=== PATIENT | male | born 1980 | race Caucasian/White ===

== ENCOUNTER 2019-03-23 18:08 | Emergency (ER) | payer BC ==
[~2019-03-23] VITALS: Ht 182.9 cm; Wt 107.0 kg
[2019-03-23] MEDS ORDERED: NS 1,000 ML IV SCH (19:42)
[2019-03-23] MEDS ORDERED: KETOROLAC 30 MG/ML VIAL (J1885) IV ONE (19:45)
[2019-03-23] MEDS ORDERED: ONDANSETRON 4MG/2ML VIAL (J2405) IV ONE (19:45)
--- NOTE | 2019-03-23 20:29 | REPVR ---
PROCEDURE INFORMATION: Exam: CT Abdomen And Pelvis Without Contrast Exam date and time: 03/23/2019 7:51 PM Age: 38 years old Clinical indication: Abdominal pain; Flank; Right; Additional info: R renal calc TECHNIQUE: Imaging protocol: Computed tomography of the abdomen and pelvis without contrast. Axial, coronal and sagittal reformatted images were created and reviewed. Radiation optimization: All CT scans at this facility use at least one of these dose optimization techniques: automated exposure control; mA and/or kV adjustment per patient size (includes targeted exams where dose is matched to clinical indication); or iterative reconstruction. COMPARISON: No relevant prior studies available. FINDINGS: Lungs: Mild linear stranding and groundglass at the lung bases, likely due to atelectasis. Liver: Unremarkable. Gallbladder and bile ducts: Contracted gallbladder without radiodense gallstones. Pancreas: Unremarkable. Spleen: Unremarkable. Adrenals: Unremarkable. Kidneys and ureters: 1.8 cm left renal cyst. No radiodense calculi. No hydronephrosis. Stomach and bowel: No bowel wall thickening. No obstruction. No pneumatosis. Appendix: Findings suggestive of prior appendectomy. Intraperitoneal space: No free fluid. No organized fluid collection. No free air. Vasculature: Unremarkable. No aneurysm. Lymph nodes: No pathologically enlarged lymph nodes. Bladder: Unremarkable. Reproductive: Unremarkable. Bones/joints: No acute osseous abnormality. Mild degenerative changes. Soft tissues: Unremarkable. IMPRESSION: 1. Limited noncontrast examination without CT evidence of acute intra-abdominal or pelvic pathology. 2. Additional findings, as above. Electronically signed by: Lamont Panchal On 03/23/2019 20:29:05 PM
[2019-03-23 20:41] LABS: BASO % 0.3 % (0.0-1.0); EOS # 0.2 10^3/uL (0.0-0.5); EOS % 2.1 % (0.0-3.0); HEMATOCRIT 44.3 % (42.0-52.0); HEMOGLOBIN 14.6 g/dl (13.5-17.5); LYMPH # 2.8 10^3/uL (1.5-5.0); LYMPH % 30.7 % (24.0-44.0); MEAN CORPUSCULAR HEMOGLOBIN 29.2 pg (27.0-33.0); MEAN CORPUSCULAR VOLUME 88.6 fl (80.0-96.0); MONO # 0.7 10^3/uL (0.0-0.8); NEUTROPHILS # 5.3 10^3/uL (1.5-8.5); NEUTROPHILS % 58.5 % (36.0-66.0); PLATELET COUNT, AUTOMATED 286 10^3/uL (150-450); WHITE BLOOD COUNT 9.1 10^3/uL (4.0-10.0)
[2019-03-23] MEDS ORDERED: CYCL10TA PO (20:50)
[2019-03-23] MEDS ORDERED: IBUP-1022 PO (20:50)
[2019-03-23 20:59] VITALS: BP 123/67
[2019-03-23 21:10] LABS: ALBUMIN 4.2 GM/DL (3.2-5.2); ALT/SGPT 27 U/L (12-78); BILIRUBIN,DIRECT 0.1 MG/DL (0.0-0.2); BILIRUBIN,TOTAL 0.4 MG/DL (0.2-1.0); BLOOD UREA NITROGEN 13 MG/DL (7-18); CALCIUM LEVEL 9.1 MG/DL (8.5-10.1); CARBON DIOXIDE LEVEL 26 MEQ/L (21-32); CHLORIDE LEVEL 107 MEQ/L (98-107); CREATININE FOR GFR 0.81 MG/DL (0.70-1.30); GLOMERULAR FILTRATION RATE > 60.0 (>60); GLUCOSE, FASTING 109 MG/DL (70-100); LIPASE 66 U/L (73-393); POTASSIUM SERUM 3.8 MEQ/L (3.5-5.1); SODIUM LEVEL 140 MEQ/L (136-145)
== END 2019-03-23 21:21 | disposition home or self-care (01) ==
LOC: M ED 18:08
DX: M54.9 Dorsalgia, unspecified (principal); N28.1 Cyst of kidney, acquired; R11.0 Nausea; R68.83 Chills (without fever); Z87.442 Personal history of urinary calculi
CPT/HCPCS: 74176; 80048; 80076; 81001; 83690; 85025; 96361; 96374; 96375; 99284; J1885; J2405

== ENCOUNTER → 2020-03-09 | Outpatient (CLI) | payer SELFPAY ==
[~2020-03-09] MED LIST: CYCL-707 PO; IBUP-1022 PO
== END ==
LOC: M LABSMTC 09:27
PROVIDERS: ATTEND Pediatrics
DX: Z20.822 Contact with and (suspected) exposure to COVID-19 (principal)

== ENCOUNTER → 2020-04-20 | Outpatient (CLI) | payer SELFPAY | LOC: M LABSMTC 09:37 | PROVIDERS: ATTEND Pediatrics | DX: Z11.52 Encounter for screening for COVID-19 (principal) ==

== ENCOUNTER 2022-06-21 11:29 | Emergency (ER) | payer BC ==
[~2022-06-21] VITALS: Ht 182.9 cm; Wt 99.6 kg
[2022-06-21] MEDS ORDERED: AMIT25TA17 (11:41)
[2022-06-21] MEDS ORDERED: NICO1DIS12 (11:41)
[2022-06-21 13:24] LABS: BASO % 0.1 % (0.0-1.0); EOS # 0.2 10^3/uL (0.0-0.5); HEMATOCRIT 41.9 % (42.0-52.0); HEMOGLOBIN 13.9 g/dl (13.5-17.5); LYMPH # 1.5 10^3/uL (1.5-5.0); LYMPH % 18.1 % (24.0-44.0); MEAN CORPUSCULAR HEMOGLOBIN 29.9 pg (27.0-33.0); MEAN CORPUSCULAR HGB CONC 33.2 g/dl (32.0-36.5); MEAN CORPUSCULAR VOLUME 90.1 fl (80.0-96.0); MONO # 0.7 10^3/uL (0.0-0.8); MONO % 8.2 % (2.0-8.0); NEUTROPHILS # 5.9 10^3/uL (1.5-8.5); NEUTROPHILS % 71.2 % (36.0-66.0); PLATELET COUNT, AUTOMATED 223 10^3/uL (150-450); RED BLOOD COUNT 4.65 10^6/uL (4.30-6.10); WHITE BLOOD COUNT 8.3 10^3/uL (4.0-10.0)
[2022-06-21 13:33] LABS: ALBUMIN 3.9 G/DL (3.2-5.2); ALKALINE PHOSPHATASE 56 U/L (46-116); ALT/SGPT 30 U/L (7.0-40); AST/SGOT 23 U/L (<34); BILIRUBIN,TOTAL 0.9 MG/DL (0.3-1.2); BLOOD UREA NITROGEN 11 MG/DL (9-23); CALCIUM LEVEL 8.9 MG/DL (8.5-10.1); CARBON DIOXIDE LEVEL 31 MMOL/L (20-31); CHLORIDE LEVEL 106 MMOL/L (98-107); CREATININE FOR GFR 0.76 MG/DL (0.70-1.30); GLOMERULAR FILTRATION RATE > 60.0 (>60); GLUCOSE, FASTING 78 MG/DL (60-100); POTASSIUM SERUM 3.9 MMOL/L (3.5-5.1); SODIUM LEVEL 139 MMOL/L (136-145); TOTAL PROTEIN 6.6 G/DL (5.7-8.2)
[2022-06-21] MEDS ORDERED: ONDA4TAB6 PO (13:49)
[2022-06-21 13:57] VITALS: BP 119/74
== END 2022-06-21 13:59 | disposition home or self-care (01) ==
LOC: M ED 11:29
DX: S06.0X0A Concussion without loss of consciousness, initial encounter (principal)

== ENCOUNTER → 2022-10-31 | Outpatient (CLI) | payer BC ==
[~2022-10-31] MED LIST changes: +AMIT25TA19; +NICO1DIS12; +ONDA4TAB6 PO
== END ==
LOC: M RAD 14:01
PROVIDERS: ATTEND Registered Nurse
DX: M54.50 Low back pain, unspecified (principal); R22.2 Localized swelling, mass and lump, trunk

== ENCOUNTER → 2022-11-16 | Outpatient (CLI) | payer BC | LOC: M WHC 12:32 | PROVIDERS: ATTEND Registered Nurse | DX: N50.3 Cyst of epididymis (principal); N43.3 Hydrocele, unspecified ==

== ENCOUNTER → 2023-04-17 | Outpatient (CLI) | payer BC | LOC: M WHC 13:50 | PROVIDERS: ATTEND Registered Nurse | DX: N63.22 Unspecified lump in the left breast, upper inner quadrant (principal); N62 Hypertrophy of breast | CPT/HCPCS: 76642; 77066; G0279 ==

== ENCOUNTER → 2024-04-19 | Outpatient (REF) | payer BC ==
[~2024-04-19] MED LIST changes: +ONDA-282 PO; -ONDA4TAB6 PO
[2024-04-19 15:12] LABS: BLOOD UREA NITROGEN 11 MG/DL (9-23); CREATININE FOR GFR 0.77 MG/DL (0.70-1.30); GLOMERULAR FILTRATION RATE > 60.0 (>60)
== END ==
LOC: M LABDRWAD 13:07
PROVIDERS: ATTEND Registered Nurse
DX: Z01.812 Encounter for preprocedural laboratory examination (principal)

== ENCOUNTER → 2024-04-23 | Outpatient (CLI) | payer BC ==
[~2024-04-23] MED LIST changes: +ISOVUE-370 76% 100ML VIAL ONE
== END ==
LOC: M PLAIMG 08:39
PROVIDERS: ATTEND Registered Nurse
DX: N28.1 Cyst of kidney, acquired (principal); J98.11 Atelectasis; N28.89 Other specified disorders of kidney and ureter; K57.90 Diverticulosis of intestine, part unspecified, without perforation or abscess without bleeding; K40.20 Bilateral inguinal hernia, without obstruction or gangrene, not specified as recurrent; R16.1 Splenomegaly, not elsewhere classified; K76.0 Fatty (change of) liver, not elsewhere classified
CPT/HCPCS: 74177; Q9967

== ENCOUNTER → 2024-06-04 | Outpatient (REF) | payer BC ==
[~2024-06-04] MED LIST changes: -ISOVUE-370 76% 100ML VIAL ONE
[2024-06-04 14:08] LABS: BASO # 0.1 10^3/uL (0.0-0.2); BASO % 0.5 % (0.0-1.0); EOS # 0.3 10^3/uL (0.0-0.5); EOS % 2.9 % (0.0-3.0); HEMATOCRIT 47.1 % (42.0-52.0); HEMOGLOBIN 15.5 g/dl (13.5-17.5); LYMPH # 2.9 10^3/uL (1.5-5.0); LYMPH % 27.5 % (24.0-44.0); MEAN CORPUSCULAR HEMOGLOBIN 29.6 pg (27.0-33.0); MEAN CORPUSCULAR HGB CONC 32.9 g/dl (32.0-36.5); MEAN CORPUSCULAR VOLUME 90.1 fl (80.0-96.0); MONO # 0.7 10^3/uL (0.0-0.8); MONO % 6.4 % (2.0-8.0); NEUTROPHILS # 6.5 10^3/uL (1.5-8.5); NEUTROPHILS % 62.2 % (36.0-66.0); PLATELET COUNT, AUTOMATED 283 10^3/uL (150-450); RED BLOOD COUNT 5.23 10^6/uL (4.30-6.10); WHITE BLOOD COUNT 10.5 10^3/uL (4.0-10.0)
[2024-06-04 14:14] LABS: ALBUMIN 3.9 G/DL (3.2-5.2); ALKALINE PHOSPHATASE 69 U/L (40-129); ALT/SGPT 34 U/L (7.0-40); AST/SGOT 16 U/L (<34); BILIRUBIN,TOTAL 0.4 MG/DL (0.3-1.2); BLOOD UREA NITROGEN 9 MG/DL (9-23); CALCIUM LEVEL 9.8 MG/DL (8.5-10.1); CARBON DIOXIDE LEVEL 27 MMOL/L (20-31); CHLORIDE LEVEL 108 MMOL/L (98-107); CHOLESTEROL LEVEL 259 MG/DL (<200); CHOLESTEROL RISK RATIO 6.94 (<5); CREATININE FOR GFR 0.79 MG/DL (0.70-1.30); GLOMERULAR FILTRATION RATE > 90.0 (>60); GLUCOSE, FASTING 95 MG/DL (60-100); HDL CHOLESTEROL 37.3 MG/DL (>40); LDL CHOLESTEROL 191.7 MG/DL (<100); NON-HDL-C 221.7 MG/DL; POTASSIUM SERUM 4.6 MMOL/L (3.5-5.1); SODIUM LEVEL 142 MMOL/L (136-145); TOTAL PROTEIN 6.8 G/DL (5.7-8.2); TRIGLYCERIDES LEVEL 150 MG/DL (<150)
[2024-06-04 14:29] LABS: HEMOGLOBIN A1c 5.4 % (4.0-6.0)
== END ==
LOC: M LABDRWAD 13:28
PROVIDERS: ATTEND Registered Nurse
DX: Z00.00 Encounter for general adult medical examination without abnormal findings (principal)

== ENCOUNTER → 2024-08-27 | Outpatient (REF) | payer BC ==
[2024-08-27 15:36] LABS: ALT/SGPT 22 U/L (7.0-40); AST/SGOT 15 U/L (<34); CALCIUM LEVEL 9.5 MG/DL (8.5-10.1); CARBON DIOXIDE LEVEL 26 MMOL/L (20-31); CHLORIDE LEVEL 104 MMOL/L (98-107); CHOLESTEROL LEVEL 231 MG/DL (<200); CHOLESTEROL RISK RATIO 6.17 (<5); CREATININE FOR GFR 0.82 MG/DL (0.70-1.30); GLOMERULAR FILTRATION RATE > 90.0 (>60); LDL CHOLESTEROL 169.4 MG/DL (<100); NON-HDL-C 193.6 MG/DL; POTASSIUM SERUM 4.4 MMOL/L (3.5-5.1); SODIUM LEVEL 141 MMOL/L (136-145); TRIGLYCERIDES LEVEL 121 MG/DL (<150)
== END ==
LOC: M LABDRWAD 13:27
PROVIDERS: ATTEND Registered Nurse
DX: E78.2 Mixed hyperlipidemia (principal)

== ENCOUNTER → 2024-09-24 | Outpatient (CLI) | payer BC | LOC: M WUC 09:22 | PROVIDERS: ATTEND Nurse Practitioner Family | DX: R07.82 Intercostal pain (principal) ==

== ENCOUNTER → 2024-11-19 | Outpatient (CLI) | payer BC ==
[~2024-11-19] MED LIST changes: -IBUP-1022 PO; +IBUP600T42 PO
== END ==
LOC: M RAD 07:01
PROVIDERS: ATTEND Registered Nurse
DX: R93.89 Abnormal findings on diagnostic imaging of other specified body structures (principal); N28.1 Cyst of kidney, acquired

== ENCOUNTER → 2025-01-01 | Outpatient (REF) | payer BC | LOC: M SMT 13:38 | PROVIDERS: ATTEND Urology | DX: Z30.2 Encounter for sterilization (principal) ==